=== PATIENT | female | born 1945 | race Caucasian/White ===

== ENCOUNTER 2017-06-21 13:25 | Emergency (ER) | payer OTHER ==
[2017-06-21 13:36] VITALS: BP 146/88; PULSE 77; TEMP 97.8; BMI 26.6
--- NOTE | 2017-06-21 16:21 | PDOC ---
History of Present Illness - General Chief Complaint: Chest Pain Stated Complaint: CHEST PAIN Time Seen by Provider: 06/21/17 16:19 Past History - Past Medical History Allergies/Adverse Reactions: Allergies Allergy/AdvReac Type Severity Reaction Status Date / Time metronidazole [From Flagyl] Allergy Severe Rash Verified 06/21/17 13:29 Penicillins Allergy Severe Rash Verified 06/21/17 13:29 Home Medications: Ambulatory Orders Atenolol [Tenormin -] 25 mg PO DAILY 06/21/17 Atorvastatin Ca [Lipitor] 0 mg PO HS 06/21/17 Ciprofloxacin [Cipro (Restricted To Id)] 500 mg PO Q12H 06/21/17 Tramadol HCl 50 mg PO BID PRN #10 tablet MDD 2 06/21/17 Cardiac Disorders: Yes (MVP) HTN: Yes (low) Psychiatric Problems: Yes (anxiety) Other medical history: palpitations, diverticulitis - Immunization History Immunization Up to Date: No - Suicide/Smoking/Psychosocial Hx Smoking History: Never smoked Hx Alcohol Use: No Drug/Substance Use Hx: No *Physical Exam - Vital Signs Last Vital Signs Temp Pulse Resp BP Pulse Ox 97.8 F 77 18 146/88 97 06/21/17 13:29 06/21/17 13:29 06/21/17 13:29 06/21/17 13:29 06/21/17 13:29 ED Treatment Course - LABORATORY CBC & Chemistry Diagram: 06/21/17 17:05 06/21/17 17:05 *DC/Admit/Observation/Transfer Diagnosis at time of Disposition: Costochondritis - Discharge Dispostion Disposition: HOME Condition at time of disposition: Good Admit: No - Patient Instructions Printed Discharge Instructions: DI for Atypical Chest Pain, DI for Costochondritis Additional Instructions: You have bruising on your chest. Your testing was normal today. Your x-ray showed no broken bones. Your lab work showed that your slightly dehydrated. Please drink more water. Follow-up with her primary care doctor in 1 week. You may take ibuprofen as needed for pain. You may take 600 mg 3 times a day, not to exceed 3000 mg in 1 day. He may also take tramadol as needed for breakthrough pain. Do not drive after taking this medication as it may make you sleepy. Return to the emergency department if you have worsening pain, shortness of breath, worsening chest pain, weakness, dizziness, swelling in her legs or feet , or any others changes in her symptoms.
[2017-06-21] MEDS ORDERED: traMADol HCL 50 MG TABLET PO ONE (16:53)
[2017-06-21] MEDS ORDERED: traMADol HCL 50 MG TABLET ONE (16:57)
[2017-06-21 17:14] LABS: BASOPHIL 0.9 % (0-2.0); EOSINOPHIL 1.2 % (0-4.5); MCH 28.3 pg (25.7-33.7); MCHC 33.6 g/dl (32.0-36.0); MEAN CELL VOLUME 84.4 fl (80-96); NEUTROPHILS 58.8 % (42.8-82.8); PLATELET COUNT 246 K/MM3 (134-434); RDW 13.4 % (11.6-15.6); WHITE BLOOD COUNT 6.2 K/mm3 (4.0-10.0)
[2017-06-21 17:26] LABS: INR 0.96 (0.82-1.09); PROTHROMBIN TIME (PATIENT) 10.9 SEC (9.98-11.88)
[2017-06-21 17:37] LABS: ALBUMIN 4.1 g/dl (3.4-5.0); ALK PHOS 144 U/L (45-117); ANION GAP 5 (8-16); BILIRUBIN,TOTAL 0.2 mg/dL (0.2-1.0); CALCIUM 9.1 mg/dL (8.5-10.1); CO2 31 mmol/L (21-32); CREATININE 0.7 mg/dL (0.55-1.02); GLUCOSE,RANDOM 113 mg/dL (74-106); SGPT/ALT 23 U/L (12-78); TOT PROT 7.8 g/dl (6.4-8.2)
[2017-06-21 17:38] LABS: CPK 102 IU/L (26-192); TROPONIN I < 0.02 ng/ml (0.00-0.05)
[2017-06-21 17:39] LABS: SGOT/AST 20 U/L (15-37)
--- NOTE | 2017-06-22 10:09 | EKG ---
Test Reason : Blood Pressure : / mmHG Vent. Rate : 077 BPM Atrial Rate : 077 BPM P-R Int : 200 ms QRS Dur : 092 ms QT Int : 398 ms P-R-T Axes : 046 -26 042 degrees QTc Int : 450 ms POOR DATA QUALITY, INTERPRETATION MAY BE ADVERSELY AFFECTED NORMAL SINUS RHYTHM POSSIBLE LEFT ATRIAL ENLARGEMENT LEFTWARD AXIS NO PREVIOUS ECGS AVAILABLE Confirmed by SHERRIE GONZALEZ MD ([id number]) on 06/22/2017 10:08:51 AM Referred By: Confirmed By:SHERRIE GONZALEZ MD
== END 2017-06-21 18:31 | disposition home or self-care (01) ==
LOC: JER 13:25
DX: M94.0 Chondrocostal junction syndrome [Tietze] (principal)
CPT/HCPCS: 36415; 71020-TC; 71101-TC; 80053; 82550; 84484; 85025; 85610; 93005; 93010; 99284-25